=== PATIENT | male | born 1985 | race Caucasian/White ===

== ENCOUNTER 2016-06-19 13:10 | Day surgery (SDC) | payer OTHER ==
[2016-06-18 14:04] VITALS: BMI 23.7
[~2016-06-19] VITALS: Ht 177.8 cm; Wt 71.0 kg
[2016-06-19] VITALS (13 sets, daily range): BP systolic 107–132; BP diastolic 55–76; PULSE 65–90; RESP 15–20; Ht 177.8 cm; Wt 71.0 kg
[~2016-06-19 13:10] MED LIST: CEFAZOLIN 1 GM INJ ONE; CEFAZOLIN 2 GM/50 ML (PMX) 50 ML IVPB ONE; LACTATED RINGER'S 1,000 ML IV* SCH
[2016-06-19] MEDS ORDERED: BUPIVACAINE 0.5% (SDV) 30 ML INJ ONE (15:07)
[2016-06-19] MEDS ORDERED: POVIDONE IODINE 10% 28.4 GM OINT ONE (15:07)
[2016-06-19] MEDS ORDERED: MIDAZOLAM 1 MG/ML 2 ML INJ ONE (15:43)
[2016-06-19] MEDS ORDERED: DEXAMETHASONE 4 MG/ML 1 ML INJ ONE (15:43)
[2016-06-19] MEDS ORDERED: FENTAnyl 50 MCG/ML VIAL ONE (15:43)
[2016-06-19] MEDS ORDERED: PROPOFOL 20 ML ONE (15:43)
[2016-06-19] MEDS ORDERED: SUCCINYLCHOLINE CHLORIDE 100 MG/5 ML SYG IV ONE (15:43)
[2016-06-19] MEDS ORDERED: ONDANSETRON 4 MG INJ ONE (15:43)
[2016-06-19] MEDS ORDERED: LIDOCAINE 100 MG SYRINGE ONE (15:43)
--- NOTE | 2016-06-19 15:46 | HPN ---
Date/Time of Note Date/Time of Note DATE: 06/19/16 TIME: 15:46 Interval H&P Admission Note Pt. seen H&P reviewed: No system changes BRIDGETT GARCIA Jun 19, 2016 15:46
[2016-06-19] MEDS ORDERED: KETOROLAC 30 MG INJ ONE (15:59)
[2016-06-19] MEDS ORDERED: FENTAnyl 50 MCG/ML VIAL IV PRN ×3 (16:30)
[2016-06-19] MEDS ORDERED: EPHEDrine SULFATE 50 MG/5 ML SYG IV PRN (16:30)
[2016-06-19] MEDS ORDERED: TRIMETHOBENZAMIDE 100 MG/ML VIAL IM PRN (16:30)
[2016-06-19] MEDS ORDERED: hydrALAzine 20 MG INJ IV PRN (16:30)
[2016-06-19] MEDS ORDERED: DIPHENHYDRAMINE 50 MG INJ IV PRN (16:30)
[2016-06-19] MEDS ORDERED: LABETALOL HCL 20MG INJ IV PRN (16:30)
[2016-06-19] MEDS ORDERED: MEPERIDINE 25 MG INJ IV PRN (16:30)
[2016-06-19] MEDS ORDERED: ONDANSETRON 4 MG INJ IV PRN (16:30)
[2016-06-19] MEDS ORDERED: HYDROmorphONE (0.2 MG/ML) 10ML SYG IV PRN ×3 (16:30)
[2016-06-19] MEDS ORDERED: MIDAZOLAM 1 MG/ML 2 ML INJ IV PRN (16:30)
--- NOTE | 2016-06-19 17:23 | OPR ---
DATE OF OPERATION: 06/19/2016 SURGEON: Bridgett Vasquez MD ANESTHESIA: General plus local. PREOPERATIVE DIAGNOSIS: Left wrist dorsal ganglion. POSTOPERATIVE DIAGNOSIS: Left wrist dorsal ganglion. PROCEDURE: Excision of left wrist dorsal ganglion. OPERATIVE FINDINGS: Left wrist dorsal ganglion arising from the scapholunate ligament. INDICATION FOR PROCEDURE: This is a 31-year-old male with longstanding left wrist ganglion who fail ed conservative management and elected to proceed with operative intervention, understanding the ris ks and benefits. DESCRIPTION OF PROCEDURE: The patient was seen in the preoperative area and all further questions a nswered. Again, he gave informed consent, understanding risks and benefits. He was taken to operat lynn suite and placed in supine position. He was placed under general anesthesia and tourniquet plac ed on left upper extremity. Ancef 2 grams was administered, and left upper extremity was prepped wi th ChloraPrep stick and draped in usual sterile fashion. Esmarch bandage was used to exsanguinate t he extremity and tourniquet inflated to 250 mmHg. A transverse incision within Buzz's lines was u tilized directly over the wrist joint and the dorsal cyst. Sharp dissection was carried down throug h skin and subcutaneous tissue. Scissor dissection revealed the extensor retinaculum and the fullne ss deep to it from the cyst itself. The EPL tendon sheath was incised, and the EPL tendon was retra cted radially. The dorsal capsule of the wrist was visualized and was incised transversely. The cy st was isolated and was traveling deep with a stalk coming from the scapholunate ligament. The cyst was completely excised with a portion of the capsule. The scapholunate ligament itself was intact. Bovie electrocautery was used to shrink down the scapholunate ligament from where the cyst was tanika ginating. Wound was copiously irrigated and skin closed with deep dermal 4-0 Monocryl. Steri-Strip s were placed followed by Xeroform, sterile gauze, Webril and a short arm splint. Tourniquet was de flated after 23 minutes, and the patient was awakened from anesthesia. He was taken to the postoper ative suite in stable condition and tolerated the procedure well without complication. SPECIMENS: Left wrist ganglion. ESTIMATED BLOOD LOSS: 5 mL SPONGE, INSTRUMENT, NEEDLE COUNTS: Correct. TOURNIQUET TIME: 23 minutes. CONDITION ON DISCHARGE: Stable. Dictated By: BRIDGETT NUÑEZ/JOSAFAT Conf#: [id number] DID#: [id number]
[2016-06-19] MEDS ORDERED: POLYMYXIN/BACITRACIN 1L IRRIG IRR ONE (19:01)
== END 2016-06-19 18:10 | disposition home or self-care (01) ==
LOC: SDS 13:10
PROVIDERS: ATTEND Orthopaedic Surgery Hand Surgery
DX: M67.432 Ganglion, left wrist (principal)
CPT/HCPCS: 25111; 88304; J0330; J0690; J1100; J1885; J2001; J2250; J2405; J3010